=== PATIENT | female | born 1935 | race Caucasian/White ===

== ENCOUNTER 2019-02-17 12:23 | Emergency (ER) | payer MEDICARE ==
[2019-02-17 13:54] VITALS: BP 174/61
--- NOTE | 2019-02-17 14:02 | UC ---
Respiratory Complaint HPI - HPI Summary HPI Summary: Onset 02/13/19 of cough while cleaning oven. Productive cough has persisted; cough has lead to gagging and nearly vomiting. - History of Current Complaint Chief Complaint: UCRespiratory Stated Complaint: COUGH/SORETHROAT Time Seen by Provider: 02/17/19 13:38 Hx Obtained From: Patient ?: No Onset/Duration: Sudden Onset, Lasting Days Timing: Constant Severity Initially: Mild Severity Currently: Mild Pain Intensity: 2 Aggravating Factors: Allergens Alleviating Factors: Nothing - Allergies/Home Medications Allergies/Adverse Reactions: Allergies Allergy/AdvReac Type Severity Reaction Status Date / Time cefprozil [From Cefzil] Allergy Hives/Diff. Verified 02/17/19 13:46 Breathing/I tching erythromycin base Allergy Hives/Diff. Verified 02/17/19 13:46 Breathing/I tching Penicillins Allergy Hives/Diff. Verified 02/17/19 13:46 Breathing/I tching tetracycline Allergy Hives/Diff. Verified 02/17/19 13:46 Breathing/I tching Home Medications: Home Medications Acetaminophen TAB* [Tylenol TAB*] 650 mg PO Q4H PRN 02/17/19 [History Confirmed 02/17/19] Albuterol HFA INHALER* [Ventolin HFA Inhaler*] 1 - 2 puff INH Q4H PRN 02/17/19 [ History Confirmed 02/17/19] Cholecalciferol TAB* [Vitamin D TAB*] 5,000 unit PO SEE INSTRUCTIONS 02/17/19 [ History Confirmed 02/17/19] Dm/PE/Acetaminophen/Doxylamine [COLD & FLU MULTI-SYMPTOM (Liquid)] 1 cap PO BID PRN 02/17/19 [History Confirmed 02/17/19] Vit A/Vit C/Vit E/Zinc/Copper [Preservision Areds Softgel] 1 each PO BID [History Confirmed 02/17/19] PMH/Surg Hx/FS Hx/Imm Hx Previously Healthy: No Cardiovascular History: Cardiac Disease - Surgical History Surgical History: Yes Surgery Procedure, Year, and Place: SINUS SURGERY - BEFORE 1999 [facility]. CERVICAL DISECTOMY - 2001 [facility]. RIGHT LEG VEIN SURGERY 2009 [facility]. Cholecystectoly. B /L knee replacement - Family History Known Family History: Positive: Hypertension - Social History Alcohol Use: None Substance Use Type: None Smoking Status (MU): Former Smoker When Did the Patient Quit Smoking/Using Tobacco: 29 yrs ago - Immunization History Most Recent Influenza Vaccination: 11/04/12 Most Recent Tetanus Shot: UNKNOWN Most Recent Pneumonia Vaccination: Pt states she had in past Review of Systems All Other Systems Reviewed And Are Negative: Yes Respiratory: Positive: Cough Gastrointestinal: Positive: Vomiting Physical Exam Triage Information Reviewed: Yes Appearance: Well-Nourished, Ill-Appearing, Pain Distress Vital Signs: Initial Vital Signs Temp 98.6 F 02/17/19 13:46 Pulse 68 02/17/19 13:46 Resp 22 02/17/19 13:46 BP 174/61 02/17/19 13:46 Pulse Ox 98 02/17/19 13:46 Vital Signs Reviewed: Yes Eyes: Positive: Conjunctiva Inflamed ENT: Positive: Pharynx normal, TMs normal Neck exam: Normal Respiratory: Positive: Respiratory distress - moderate, Decreased breath sounds - on right lobes, Rhonchi, Wheezing, Inspiration Cardiovascular Exam: Normal Cardiovascular: Positive: RRR, No Murmur, Pulses Normal Abdominal Exam: Normal Abdomen Description: Positive: No Organomegaly, Soft Musculoskeletal Exam: Normal Neurological Exam: Normal Psychological Exam: Normal Skin Exam: Normal Respiratory Course/Dx - Course Course Of Treatment: hx obtained, exam performed ,meds reviewed, chest xray ordered - Differential Dx/Diagnosis Differential Diagnosis/HQI/PQRI: Bronchitis, Lower Resp Infection, Sinusitis Provider Diagnosis: Sinusitis Discharge ED - Sign-Out/Discharge Documenting (check all that apply): Patient Departure All imaging exams completed and their final reports reviewed: No Studies - Discharge Plan Condition: Stable Disposition: HOME Prescriptions: DOXYcycline CAP(*) [DOXYcycline 100MG CAP(*)] 100 mg PO BID #14 cap Patient Education Materials: Sinusitis (ED) Referrals: Preet Colunga DO [Primary Care Provider] - Additional Instructions: 1. your chest xray is negative 2. Start the medication and take the entire course 3. Get lots of rest and fluids 4. If not improving in the next 3-4 days follow up with your physician - Billing Disposition and Condition Condition: STABLE Disposition: Home
== END 2019-02-17 14:34 | disposition home or self-care (01) ==
LOC: UCCORT 12:23
DX: J32.9 Chronic sinusitis, unspecified (principal); R11.10 Vomiting, unspecified; Z88.1 Allergy status to other antibiotic agents; Z88.0 Allergy status to penicillin; Z87.891 Personal history of nicotine dependence
CPT/HCPCS: 71046; 99212; G0463